=== PATIENT | female | born 1980 | race Caucasian/White ===

== ENCOUNTER 2018-03-26 08:17 | Emergency (ER) | payer OTHER, SELFPAY ==
[2018-03-26 08:37] VITALS: O2SAT 98
[2018-03-26] MEDS ORDERED: Augmentin 875-125 Tablet PO ONE (08:44)
[2018-03-26] MEDS ORDERED: MOTRIN 600 MG PO ONE (08:45)
[2018-03-26] MEDS ORDERED: MOTRIN 600 MG ONE (09:01)
[2018-03-26] MEDS ORDERED: Augmentin 875-125 Tablet ONE (09:01)
--- NOTE | 2018-03-26 09:25 | ERPHSYRPT ---
- History of Present Illness Time Seen by Provider: 03/26/18 08:26 Source: patient Exam Limitations: clinical condition Patient Subjective Stated Complaint: Pt states "I have this tooth that I need to go get fixed and it really started to hurt yesterday so I put a bunch of oragel on it and when I woke up this morning my jaw was swollen and hurts too." Triage Nursing Assessment: Pt alert and oriented X 3, skin pwd. Pt ambulates with an upright steady gait, able to speak in clear full sentences. the lower left jaw slightly swollen with a broken tooth noted to the lower left. Physician History: PATIENT COMPLAINS LEFT UPPER TOOTHACHE ASSOCIATED WITH JAW SWELLING SINCE LAST NIGHT. DENIES FEVER, DIFFICULTY SWALLOWING OR BREATHING. Timing/Duration: gradual onset Severity: moderate ENT Location: facial, dental Prearrival Treatment: no prearrival treatment Modifying Factors: Improves With: nothing Associated Symptoms: facial pain/swelling, jaw pain Allergies/Adverse Reactions: betamethasone [From Celestone] Allergy (Mild, Verified 07/09/16 12:00) Swelling betamethasone sodium phosphate [From Celestone] Allergy (Mild, Verified 12:00) Swelling ciprofloxacin [From Cipro] Allergy (Mild, Verified 07/09/16 12:00) Swelling ciprofloxacin HCl [From Cipro] Allergy (Mild, Verified 07/09/16 12:00) Swelling ondansetron HCl [From Zofran (as hydrochloride)] Allergy (Mild, Verified 12:00) "MAKES ME FEEL FUNNY" oseltamivir phosphate [From Tamiflu] Adverse Reaction (Verified 07/09/16 12:00) "makes me feel funny Home Medications: Famotidine [Pepcid] 40 mg PO DAILY 07/09/16 [History] Escitalopram Oxalate 10 mg [Lexapro 10 MG] 10 mg PO DAILY 03/26/18 [History] Quetiapine Fumarate [Seroquel] 25 mg PO DAILY 03/26/18 [History] Hx Tetanus, Diphtheria Vaccination/Date Given: No Hx Influenza Vaccination/Date Given: Yes Hx Pneumococcal Vaccination/Date Given: No Immunizations Up to Date: Yes - Review of Systems Constitutional: No Fever, No Chills Ears, Nose, & Throat: Throat Pain (FACIAL SWELLING) Respiratory: No Symptoms Cardiac: No Symptoms - Past Medical History Pertinent Past Medical History: Yes Neurological History: No Pertinent History ENT History: No Pertinent History Cardiac History: Other Respiratory History: No Pertinent History Endocrine Medical History: No Pertinent History Musculoskeletal History: No Pertinent History GI Medical History: GERD History: No Pertinent History Psycho-Social History: Anxiety Female Reproductive Disorders: No Pertinent History Other Medical History: Gestational Diabetes , mitro valve prolapse at one time ( mild) - Past Surgical History Past Surgical History: Yes Neuro Surgical History: No Pertinent History Cardiac: No Pertinent History Respiratory: No Pertinent History Gastrointestinal: Appendectomy Genitourinary: No Pertinent History Musculoskeletal: No Pertinent History Female Surgical History: No Pertinent History Other Surgical History: Appendix removed - Social History Smoking Status: Current every day smoker How long have you smoked: 10 years Exposure to second hand smoke: Yes Alcohol Use: Socially Drug Use: none Patient Lives Alone: No Significant Family History: hypertension - Female History Hx Last Menstrual Period: 03/18/2018 Hx Now: No - Nursing Vital Signs Nursing Vital Signs: Initial Vital Signs Temperature 98.0 F 03/26/18 08:32 Pulse Rate 82 03/26/18 08:32 Respiratory Rate 18 03/26/18 08:32 Blood Pressure 133/87 03/26/18 08:32 O2 Sat by Pulse Oximetry 98 03/26/18 08:32 Pain Scale Pain Intensity 5 - Physical Exam General Appearance: no apparent distress, alert Eye Exam: bilateral eye: normal inspection, PERRL Ear Exam: bilateral ear: auricle normal, canal normal Nasal Exam: normal inspection Throat Exam: dental tenderness, maxillary swelling (LEFT MAXILLARY SWELLING, CARIES UPPER LEFT MOLAR TOOTH, GINGIVAL SWELLING ) Neck Exam: supple Cardiovascular/Respiratory Exam: normal breath sounds, regular rate/rhythm SpO2 Interpretation: normal SpO2: 98 Oxygen Delivery: Room Air Ordered Tests: Medication Summary Discontinued Medications Generic Name Dose Route Start Last Admin Trade Name Freq PRN Reason Stop Dose Admin Amoxicillin/Clavulanate Potassium 875 mg 03/26/18 08:44 03/26/18 09:03 Augmentin 875-125 Tablet PO 03/26/18 08:45 875 mg STAT ONE Administration Amoxicillin/Clavulanate Potassium Confirm 03/26/18 09:01 Augmentin 875-125 Tablet Administered 03/26/18 09:02 Dose 875 mg .ROUTE .STK-MED ONE Ibuprofen 600 mg 03/26/18 08:45 03/26/18 09:03 Motrin 600 Mg PO 03/26/18 08:46 600 mg STAT ONE Administration Ibuprofen Confirm 03/26/18 09:01 Motrin 600 Mg Administered 03/26/18 09:02 Dose 600 mg .ROUTE .STK-MED ONE - Progress Progress Note: 03/26/18 09:18 ADMINISTERED MOTRIN 600MG AND AUGMENTIN 875MG ORALLY Counseled pt/family regarding: lab results, diagnosis, need for follow-up - Departure Time of Disposition: :24 Departure Disposition: Home Clinical Impression: DENTAL CARIES Condition: Stable Critical Care Time: No Referrals: KAYLEE LAO MD [Primary Care Provider] - Additional Instructions: FOLLOWUP WITH A DENTIST IN 2-5 DAYS. ANTIBIOTIC AUGMENTIN 875MG TWICE DAILY FOR 10 DAYS. MOTRIN 600MG EVERY 6 HOURS NEEDED. ULTRAM 50MG EVERY 6 HOURS FOR SEVERE PAIN. Prescriptions: Ibuprofen 600 mg PO Q6HPRN PRN #20 tablet PRN Reason: Pain Tramadol HCl 50 mg [Ultram 50 mg] 50 mg PO Q6HPRN PRN #15 tablet PRN Reason: Pain Amox Tr/Potass Clav. 875 mg [Augmentin 875-125 Tablet] 1 each PO BID #20 tablet
[2018-03-26 09:31] VITALS: BP 128/84; PULSE 78
== END 2018-03-26 09:38 | disposition home or self-care (01) ==
LOC: ED 08:17
DX: K02.9 Dental caries, unspecified (principal)
CPT/HCPCS: 99283; A9270-GY